=== PATIENT | male | born 1925 | race Caucasian/White ===

== ENCOUNTER 2016-03-11 01:57 | Emergency (ER) | payer BC ==
[~2016-03-11] VITALS: Ht 152.4 cm; Wt 53.0 kg
[~2016-03-11 01:57] MED LIST: ACET-1311 PO; AMB5 PO; ATV5 PO; BCTCR EXT; BCTCR TOP; BND25X PO; CALC500C70 PO; CHOL100010 PO; CLR10 PO; CLX20 PO; FINA5TAB PO; FMV500 PO; FSM70 PO; IMD/2 PO; LATA0.009 OPB; MRLP17 PO; NAPR1TAB9 PO; OPTOPS OPB; PRD/1 PO
[2016-03-11 01:59] VITALS: TEMP 36.3; Ht 152.4 cm; Wt 53.0 kg
[2016-03-11] MEDS ORDERED: DiphenhydrAMINE HCL 50 MG/ML VIAL IV STA (02:14)
[2016-03-11] MEDS ORDERED: FAMOTIDINE 20MG/102 ML D5W IV STA (02:14)
[2016-03-11] MEDS ORDERED: LORAZEPAM 2 MG/ML 1 ML VIAL IV STA ×2 (02:14→03:17)
[2016-03-11] MEDS ORDERED: SODIUM CHLORIDE 0.9% 1000ML 1,000 ML IV STA (02:14)
[2016-03-11] MEDS ORDERED: DEXAMETHASONE SOD INJ 10 MG/ML VIAL IV ONE (02:15)
--- NOTE | 2016-03-11 02:22 | EMERGENCY ROOM VISIT NOTE ---
History Report prepared by Geraldine: Shaina Kenney Under the Supervision of: Dr. Moose Sheehan M.D. First contact with patient: 02:09 Chief Complaint: RASH Stated Complaint: RASH BOTH ARMS/NOT RESPONDING TO BENADRYL History of Present Illness The patient is an 89 year old male who presents to the Emergency Room with complaints of a persistent rash to his bilateral arms and neck that appeared today. The patient's daughter notes that the patient has a history of Jason's Disease and resides at [facility]. She states that the patient was at the dentist today for a tooth ache and was prescribed an antibiotic. The patient's daughter states that the patient has not started taking the antibiotic yet. She states that the patient's rash appeared this evening. The patient's daughter notes that the patient was given Benadryl, but it did not alleviate his symptoms. She states that the patient normally gets Ativan to help calm his nerves, but states that the staff did not give the patient any Ativan this evening. Source of History: patient, family (daughter) Onset: today Position: neck, arm (bilateral) Quality: other (rash) Timing: other (persistent) Review of Systems See HPI for pertinent positives & negatives. A total of 10 systems reviewed and were otherwise negative. Past Medical & Surgical Medical Problems: (1) Pendleton's disease Family History Noncontributory secondary to age Social History Smoking Status: Never Smoker Marital Status: Housing Status: correction Occupation Status: retired Current/Historical Medications Scheduled Acetaminophen (Tylenol), 325 MG PO HS Acetaminophen (Tylenol), 650 MG PO Q4HR PRN Acetaminophen (Tylenol), 650 MG PO Q4HR PRN Alendronate (Fosamax *), 70 MG PO WK Calcium/Vitamin D (Os-Nirmal 500 Plus D), 1 TAB PO BID Cholecalciferol (Vitamin D), 1,000 INTER.UNIT PO DAILY Citalopram (Celexa *), 10 MG PO DAILY Cromolyn Sodium 4% Oph (Opticrom Oph), 1 DROP OPB QID Diphenhydramine Hcl (Benadryl *), 50 MG PO HS PRN Famciclovir (Famvir *), 500 MG PO TID Finasteride (Proscar), 5 MG PO DAILY Latanoprost 0.005% Oph (Xalatan 0.005% Oph), 1 DROP OPB HS Loperamide Hcl (Imodium), 4 MG PO DIRECTED Loratadine (Claritin), 10 MG PO DAILY Lorazepam (Ativan *), 0.5 MG PO HS Lorazepam (Ativan *), 0.5 MG PO Q4HR PRN Mupirocin 2% (Bactroban 2% *), 0 EXT UD Mupirocin 2% (Bactroban 2% *), 0 TOP TID Naproxen (Aleve), 220 MG PO 2-3 DAILY PRN Polyethylene Glycol (Miralax *), 17 GM PO PRN Prednisone (Prednisone), 1 MG PO DAILY Prednisone (Prednisone), 1 TAB PO DAILY Zolpidem Tartrate (Ambien *), 5 MG PO HS PRN Allergies Coded Allergies: No Known Allergies (Unverified , 03/02/10) Physical Exam Vital Signs Date Time Temp Pulse Resp B/P Pulse Ox O2 Delivery O2 Flow Rate FiO2 03/11/16 04:11 98 18 117/88 95 03/11/16 01:59 36.3 110 18 164/134 97 Room Air Physical Exam GENERAL: Patient is anxious appearing, minimal distress. Continuous tremor and jerky movements. HEENT: No acute trauma, normocephalic atraumatic, mucous membranes moist, no nasal congestion, no scleral icterus. NECK: No stridor, no adenopathy, no meningismus, trachea is midline. LUNGS: No dyspnea. Clear to auscultation and equal bilaterally. No wheeze, no rhonchi. HEART: Regular rate and rhythm. No murmurs, rubs, gallops appreciated. ABDOMEN: Soft, nontender, bowel sounds positive, no masses appreciated, no peritonitis. BACK: No midline tenderness, no CVA tenderness EXTREMITIES: Normal motion all extremities, no cyanosis, no edema. NEUROLOGIC: Alert and oriented, no acute motor or sensory deficits, no focal weakness, cranial nerves grossly intact. SKIN: Raised hives of bilatearl inner amrs spreading across anterior lower neck. no jaundice, no diaphoresis. Medical Decision & Procedures Laboratory Results 03/11/16 03:00 Red Blood Count 3.76, Mean Corpuscular Volume 97.6, Mean Corpuscular Hemoglobin 34.6, Mean Corpuscular Hemoglobin Concent 35.4, Mean Platelet Volume 9.5, Neutrophils (%) (Auto) 56.2, Lymphocytes (%) (Auto) 21.0, Monocytes (%) (Auto) 16.5, Eosinophils (%) (Auto) 5.0, Basophils (%) (Auto) 0.9, Neutrophils # (Auto ) 3.02, Lymphocytes # (Auto) 1.13, Monocytes # (Auto) 0.89, Eosinophils # (Auto ) 0.27, Basophils # (Auto) 0.05 03/11/16 03:00 Test 03/11/16 03:00 White Blood Count 5.38 K/uL (4.8-10.8) Red Blood Count 3.76 M/uL (4.7-6.1) Hemoglobin 13.0 g/dL (14.0-18.0) Hematocrit 36.7 % (42-52) Mean Corpuscular Volume 97.6 fL (80-100) Mean Corpuscular Hemoglobin 34.6 pg (25-34) Mean Corpuscular Hemoglobin Concent 35.4 g/dl (32-36) Platelet Count 260 K/uL (130-400) Mean Platelet Volume 9.5 fL (7.4-10.4) Neutrophils (%) (Auto) 56.2 % Lymphocytes (%) (Auto) 21.0 % Monocytes (%) (Auto) 16.5 % Eosinophils (%) (Auto) 5.0 % Basophils (%) (Auto) 0.9 % Neutrophils # (Auto) 3.02 K/uL (1.4-6.5) Lymphocytes # (Auto) 1.13 K/uL (1.2-3.4) Monocytes # (Auto) 0.89 K/uL (0.11-0.59) Eosinophils # (Auto) 0.27 K/uL (0-0.5) Basophils # (Auto) 0.05 K/uL (0-0.2) RDW Standard Deviation 44.9 fL (36.4-46.3) RDW Coefficient of Variation 12.6 % (11.5-14.5) Immature Granulocyte % (Auto) 0.4 % Immature Granulocyte # (Auto) 0.02 K/uL (0.00-0.02) Anion Gap 8.0 mmol/L (3-11) Est Creatinine Clear Calc Drug Dose 41.5 ml/min Estimated GFR () 89.3 Estimated GFR (Non- 77.1 BUN/Creatinine Ratio 19.8 (10-20) Calcium Level 8.6 mg/dl (8.5-10.1) Laboratory results as reviewed by me. Medications Administered Medications (Trade) Dose Ordered Sig/Griselda Route Start Time Stop Time Status Last Admin Dose Admin Famotidine (Pepcid 20mg/100 ml) 20 mg ONE STAT IV 03/11/16 02:14 03/11/16 02:16 DC 03/11/16 02:46 20 MG Diphenhydramine HCl (Benadryl Inj) 50 mg NOW STAT IV 03/11/16 02:14 03/11/16 02:16 DC 03/11/16 02:46 50 MG Dexamethasone Sodium Phosphate 10 mg 10 mg NOW ONCE IV 03/11/16 02:15 03/11/16 02:16 DC 03/11/16 02:47 10 MG Sodium Chloride (Nss 1000ml) 1,000 ml @ 999 mls/hr Q1H1M STAT IV 03/11/16 02:14 03/11/16 03:14 DC 03/11/16 02:47 999 MLS/HR Lorazepam (Ativan Inj) 1 mg NOW STAT IV 03/11/16 02:14 03/11/16 02:16 DC 03/11/16 02:47 1 MG Lorazepam (Ativan Inj) 1 mg NOW STAT IV 03/11/16 03:17 03/11/16 03:18 DC 03/11/16 03:17 1 MG ED Course 0210: The patient was evaluated in room B7. A complete history and physical exam was performed. 0214: Ordered Ativan Inj 1 mg IV, Sodium Chloride 1000 ml @ 999 mls/hr IV, Benadryl Inj 50 mg IV, Famotidine 20 mg IV, Decadron Inj 10 mg IV. 0317: I reevaluated the patient and he is still anxious, but the rash has improved. Ordered Ativan Inj 1 mg IV. 0348: I reevaluated the patient and the rash is improved. There is faint erythema on inner arms. He is becoming slightly more agitated, which daughter notes is common when he is in the hospital. I discussed all the exam findings with the patient and his daughter and I discussed the treatment plan. They verbalized complete understanding and agreement. The patient is ready to go home. Medical Decision Differential: Allergic Reaction, Urticaria, Anaphylaxis, Hayes-Joe Syndrome, Toxic Epidermal Necrolysis, Erythema Multiforme, Cellulitis, amongst other etiologies entertained. 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 No evidence this is infectious. Clearly agitated by it though daughter notes acute anxiety is normal for patient, especially in hospital. Given above with improvement in rash. Ativan needed as becoming further delirious (uses this regularly for sedation at [facility]). With normal labs and no fever I feel that it is reasonable to monitor this as outpatient. Daughter does note that only new thing would have been use of xray lead at dentist which may have had some casing cleaner he is reacting too. With no clear cute cause though of allergen will place on low dose prednisone next few days in addition to his 1mg. Discussed RTED if any significant worsening, especially if respiratory issues or swelling. Impression Primary Impression: Allergic urticaria Additional Impressions: Hives Agitation Scribe Attestation The scribe's documentation has been prepared under my direction and personally reviewed by me in its entirety. I confirm that the note above accurately reflects all work, treatment, procedures, and medical decision making performed by me. Departure Information Dispostion Home / Self-Care Prescriptions Prednisone (Prednisone) 20 Mg Tab 1 TAB PO DAILY for 4 Days, #4 TAB Prov: Moose Sheehan M.D. 03/11/16 Referrals Kenrick Mcarthur, D.ORylie (PCP) Forms HOME CARE DOCUMENTATION FORM, IMPORTANT VISIT INFORMATION Patient Instructions ED Allergic Reaction Local Other, My [facility] Health Problem Qualifiers
[2016-03-11 03:21] LABS: BASO % 0.9 %; BASO ABS # 0.05 K/uL (0-0.2); COMPLETE YES; HEMATOCRIT 36.7 % (42-52); IG% 0.4 %; LYMPH ABS # 1.13 K/uL (1.2-3.4); MEAN CELL VOLUME 97.6 fL (80-100); MEAN CORPUSCULAR HEMOGLOBIN 34.6 pg (25-34); MEAN CORPUSCULAR HGB CONC 35.4 g/dl (32-36); MEAN PLATELET VOLUME 9.5 fL (7.4-10.4); MONO % 16.5 %; NEUT % 56.2 %; PLATELET COUNT 260 K/uL (130-400); RED BLOOD COUNT 3.76 M/uL (4.7-6.1); WHITE BLOOD COUNT 5.38 K/uL (4.8-10.8)
[2016-03-11 03:42] LABS: BUN/CREATININE RATIO 19.8 (10-20); CALCIUM 8.6 mg/dl (8.5-10.1); CREATININE 0.87 mg/dl (0.60-1.40); POTASSIUM 4.2 mmol/L (3.5-5.1)
[2016-03-11] MEDS ORDERED: PRED20TA PO (03:50)
[2016-03-11 04:11] VITALS: BP 117/88; PULSE 98; O2SAT 95
== END 2016-03-11 04:12 | disposition home or self-care (01) ==
LOC: C.EDB 01:59
DX: L50.0 Allergic urticaria (principal); R45.1 Restlessness and agitation; G10 Huntington's disease; Z79.899 Other long term (current) drug therapy